=== PATIENT | male | born 1970 | race Caucasian/White ===

== ENCOUNTER 2022-01-24 04:36 | Day surgery (SDC) | payer BC ==
[2022-01-24 08:51] VITALS: BMI 25.1
[2022-01-24 10:40] VITALS: TEMP 98
[2022-01-24 10:58] VITALS: RESP 16
[2022-01-24 11:01] VITALS: BP 130/92; PULSE 83
== END 2022-01-24 11:23 | disposition home or self-care (01) ==
LOC: JASU-ENDO 04:36
PROVIDERS: ATTEND Internal Medicine Gastroenterology
PROC: 0DBP8ZX Excision of Rectum, Via Natural or Artificial Opening Endoscopic, Diagnostic (ICD-10-PCS; principal; 2022-01-24 09:30)
DX: Z12.11 Encounter for screening for malignant neoplasm of colon (principal); D12.8 Benign neoplasm of rectum; K64.8 Other hemorrhoids
CPT/HCPCS: 88305-TC